=== PATIENT | male | born 1995 | race Caucasian/White ===

== ENCOUNTER 2024-04-22 05:52 | Day surgery (SDC) | payer OTHER ==
[2024-04-22] VITALS (12 sets, daily range): BP systolic 127–159; BP diastolic 89–103
[~2024-04-22] VITALS: Ht 188 cm; Wt 184.5 kg
[2024-04-22] MEDS ORDERED: Dexamethasone Sod Phos 10 MG/ML 1ML VIAL ONE (06:20)
[2024-04-22] MEDS ORDERED: Rocuronium Bromide 10 MG/ML 5ML Injection IV ONE ×2 (06:20→08:04)
[2024-04-22] MEDS ORDERED: Ondansetron HCl 2 MG / ML 2ML Vial ONE (06:20)
[2024-04-22] MEDS ORDERED: propofoL 60 ML IV ONE (06:20)
[2024-04-22] MEDS ORDERED: FentaNYL Citrate 50 MCG/ML 5 ML Injection ONE (06:20)
[2024-04-22] MEDS ORDERED: Ketorolac Tromethamine 30mg Vial ONE (06:20)
[2024-04-22] MEDS ORDERED: Lactated Ringer's 1,000 ML IV SCH (06:25)
--- NOTE | 2024-04-22 06:49 | NUR ---
History, Chart, Medications and Allergies reviewed before start of procedure. Pre-Op teaching done. Pt verbalizes understanding. Patient confirms NPO status and agrees with scheduled surgery. PT BELONGINGS BAG PLACED UNDER GURNEY. PT REQUESTS TO LEAVE UNDERWEAR ON. 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
[2024-04-22] MEDS ORDERED: CeFAZolin Sodium 3,000 MG in NS 100 ML IV SCH (07:05)
[2024-04-22] MEDS ORDERED: Bupivacaine 0.5% HCl 5 MG/ML 30MLVIAL ONE ×2 (07:06→07:21)
[2024-04-22] MEDS ORDERED: Midazolam HCl 1MG / ML 2ML Vial ONE (07:06)
[2024-04-22] MEDS ORDERED: EpiNEPhrine 1 MG/1 ML 1ML Vial ONE (07:21)
--- NOTE | 2024-04-22 07:27 | NUR ---
DR. DE PAZ AT FOR R ANKLE NERVE BLOCK. PROCEDURE START AT 0720. PT O2 SAT MONITORED THROUGHOUT PROCEDURE. PT TOLERATED PROCEDURE WELL. COMPLETED AT 0725.
[2024-04-22] MEDS ORDERED: propofoL 20 ML IV ONE ×3 (07:52→09:24)
[2024-04-22] MEDS ORDERED: propofoL 50 ML IV ONE ×2 (08:25→08:51)
[2024-04-22] MEDS ORDERED: Sugammadex Sodium 200 MG/2ML SDV (100 MG/ML) ONE (08:46)
[2024-04-22] MEDS ORDERED: HYDROmorphone HCl/Pf 1MG SYR ONE ×2 (09:03→10:05)
[2024-04-22] MEDS ORDERED: OxyCODONE 5 mg/Acetamin 325 mg TABLET PO PRN (11:00)
--- NOTE | 2024-04-22 11:47 | NUR ---
Discharge instructions reviewed with patient. Patient verbalizes understanding. Copy given to patient to take home. [employer] c/d/i. Cap re-fill <3 sec. Prescription electronically sent. Patient States Post-Procedure ride home has been arranged. Discharged via wheelchair to private car for ride home.
== END 2024-04-22 11:27 | disposition home or self-care (01) ==
LOC: ORSCMMR 05:52 → ORD 07:30 → ORSCMMR 07:30
PROVIDERS: Podiatrist Foot & Ankle Surgery
PROC: 0MQQ0ZZ Repair Right Ankle Bursa and Ligament, Open Approach (ICD-10-PCS; principal; 2024-04-22 07:30)
PROC: 0SBF4ZZ Excision of Right Ankle Joint, Percutaneous Endoscopic Approach (ICD-10-PCS; principal; 2024-04-22 07:30)
DX: M25.371 Other instability, right ankle (principal); M24.871 Other specific joint derangements of right ankle, not elsewhere classified; M65.971 Unspecified synovitis and tenosynovitis, right ankle and foot; E66.01 Morbid (severe) obesity due to excess calories; Z68.43 Body mass index [BMI] 50.0-59.9, adult
CPT/HCPCS: A9270; C1713; C1776; J0171; J0690; J1100; J1171; J1885; J2250; J2405; J2704; J3010; J7120